=== PATIENT | male | born 1975 | race Two or more races ===

== ENCOUNTER → 2017-05-11 | Outpatient (CLI) | payer OTHER ==
[~2017-05-11] VITALS: Ht 152.4 cm; Wt 140.6 kg
[~2017-05-11] MED LIST: CATAFLAM50 MG PO; COZAAR100 MG PO; HYZAAR 100-121 UDTAB; LASIX20 MG; LASIX20 MG PO; LIPITOR40 MG PO; LOPRESSOR25 MG; LOPRESSOR25 MG PO; LOTREL 10/40 MG1 CAP; LOTREL 10/40 MG1 CAP PO; MEDROLPACK PO; MOTRIN800 MG PO; ORPH100T PO; OSEL75CA PO; VOLTAREM 50 MG PO; ZYRTEC10 MG PO; [UNRECOGNIZED DRUG - OTHER]
== END | disposition home or self-care (01) ==
LOC: PPHC 08:38
DX: J06.9 Acute upper respiratory infection, unspecified (principal)

== ENCOUNTER 2017-06-16 14:39 | Outpatient (CLI) | payer OTHER | END 2017-06-16 14:54 | disposition home or self-care (01) | LOC: LAB 14:39 | DX: J11.1 Influenza due to unidentified influenza virus with other respiratory manifestations (principal) ==

== ENCOUNTER → 2017-07-27 | Outpatient (CLI) | payer OTHER | END | disposition home or self-care (01) | LOC: RAD 11:48 | DX: R91.8 Other nonspecific abnormal finding of lung field (principal) ==

== ENCOUNTER → 2017-07-27 | Outpatient (CLI) | payer OTHER | END | disposition home or self-care (01) | LOC: PPHC 10:57 | DX: Z01.89 Encounter for other specified special examinations (principal) ==

== ENCOUNTER 2017-11-27 11:09 | Outpatient (CLI) | payer OTHER | END 2017-11-27 11:16 | disposition home or self-care (01) | LOC: LAB 11:09 | DX: K52.89 Other specified noninfective gastroenteritis and colitis (principal); R19.7 Diarrhea, unspecified ==

== ENCOUNTER → 2018-02-25 06:52 | Outpatient (CLI) | payer OTHER | END | disposition home or self-care (01) | LOC: LAB 06:52 | DX: I10 Essential (primary) hypertension (principal); Z13.1 Encounter for screening for diabetes mellitus; Z12.11 Encounter for screening for malignant neoplasm of colon; Z12.5 Encounter for screening for malignant neoplasm of prostate ==

== ENCOUNTER 2018-03-19 15:13 | Outpatient (CLI) | payer OTHER | END 2018-03-19 20:10 | disposition home or self-care (01) | LOC: LAB 15:13 | DX: R91.1 Solitary pulmonary nodule (principal); Z51.81 Encounter for therapeutic drug level monitoring ==

== ENCOUNTER 2018-03-22 09:05 | Outpatient (CLI) | payer OTHER | END 2018-03-22 13:19 | disposition home or self-care (01) | LOC: TOM 09:05 | DX: R91.1 Solitary pulmonary nodule (principal); K42.9 Umbilical hernia without obstruction or gangrene; K76.0 Fatty (change of) liver, not elsewhere classified ==

== ENCOUNTER 2018-04-08 11:23 | Outpatient (CLI) | payer OTHER | END 2018-04-08 11:28 | disposition home or self-care (01) | LOC: LAB 11:23 | DX: J11.1 Influenza due to unidentified influenza virus with other respiratory manifestations (principal); J06.9 Acute upper respiratory infection, unspecified ==

== ENCOUNTER 2018-05-11 15:50 | Outpatient (CLI) | payer OTHER | END 2018-05-11 16:10 | disposition home or self-care (01) | LOC: RAD 15:50 | DX: M54.6 Pain in thoracic spine (principal) ==

== ENCOUNTER 2018-06-16 08:46 | Outpatient (CLI) | payer OTHER | END 2018-06-16 09:00 | disposition home or self-care (01) | LOC: LAB 08:46 | DX: N40.0 Benign prostatic hyperplasia without lower urinary tract symptoms (principal) ==

== ENCOUNTER → 2018-07-23 07:34 | Outpatient (CLI) | payer OTHER | END | disposition home or self-care (01) | LOC: RAD 07:34 | DX: M25.531 Pain in right wrist (principal) ==

== ENCOUNTER 2018-08-10 23:38 | Emergency (ER) | payer OTHER ==
[~2018-08-10] VITALS: Ht 177.8 cm; Wt 136.1 kg
[2018-08-10] MEDS ORDERED: GLUCOPHAGE XR500 MG (23:48)
[2018-08-11] MEDS ORDERED: NAPROXEN SODIU550 MG PO (01:34)
== END 2018-08-11 01:50 | disposition home or self-care (01) ==
LOC: ER 23:38
DX: M72.2 Plantar fascial fibromatosis (principal)

== ENCOUNTER → 2018-10-02 07:35 | Outpatient (CLI) | payer OTHER ==
[~2018-10-02 07:35] MED LIST changes: +GLUCOPHAGE XR500 MG; +NAPROXEN SODIU550 MG PO
== END | disposition home or self-care (01) ==
LOC: LAB 07:35
DX: E11.65 Type 2 diabetes mellitus with hyperglycemia (principal); E78.00 Pure hypercholesterolemia, unspecified; E03.8 Other specified hypothyroidism

== ENCOUNTER 2019-01-17 10:52 | Outpatient (CLI) | payer OTHER | END 2019-01-19 10:37 | disposition home or self-care (01) | LOC: RAD 10:52 | DX: M79.674 Pain in right toe(s) (principal) ==

== ENCOUNTER 2019-01-25 14:02 | Emergency (ER) | payer OTHER ==
[~2019-01-25] VITALS: Ht 177.8 cm; Wt 136.1 kg
[2019-01-25] MEDS ORDERED: ZETIA10 MG (14:18)
[2019-01-25] MEDS ORDERED: FORTAMET500 MG (14:18)
[2019-01-25] MEDS ORDERED: GLIPIZIDE5 MG (14:20)
== END 2019-01-25 16:08 | disposition home or self-care (01) ==
LOC: ER 14:02
DX: S00.81XA Abrasion of other part of head, initial encounter (principal); W22.8XXA Striking against or struck by other objects, initial encounter; Y93.89 Activity, other specified; Y92.69 Other specified industrial and construction area as the place of occurrence of the external cause; Y99.8 Other external cause status

== ENCOUNTER 2019-02-15 06:47 | Outpatient (CLI) | payer OTHER ==
[~2019-02-15 06:47] MED LIST changes: +FORTAMET500 MG; +GLIPIZIDE5 MG; +ZETIA10 MG
== END 2019-02-15 06:50 | disposition home or self-care (01) ==
LOC: LAB 06:47
DX: M79.674 Pain in right toe(s) (principal)

== ENCOUNTER 2019-02-22 11:25 | Outpatient (CLI) | payer OTHER | END 2019-02-22 11:31 | disposition home or self-care (01) | LOC: RAD 11:25 | DX: M25.562 Pain in left knee (principal) ==

== ENCOUNTER → 2019-03-02 13:45 | Outpatient (CLI) | payer OTHER | END | disposition home or self-care (01) | LOC: LAB 13:45 | DX: D64.89 Other specified anemias (principal); M06.4 Inflammatory polyarthropathy; E88.89 Other specified metabolic disorders; M13.88 Other specified arthritis, other site; M10.9 Gout, unspecified ==

== ENCOUNTER → 2019-03-02 | Outpatient (CLI) | payer OTHER | END | disposition home or self-care (01) | LOC: RAD 11:04 | DX: M25.572 Pain in left ankle and joints of left foot (principal); M25.571 Pain in right ankle and joints of right foot ==

== ENCOUNTER → 2019-03-21 06:48 | Outpatient (CLI) | payer OTHER | END | disposition home or self-care (01) | LOC: LAB 06:48 | DX: I10 Essential (primary) hypertension (principal); M54.5 Low back pain; E66.3 Overweight ==

== ENCOUNTER 2019-03-24 06:28 | Outpatient (CLI) | payer OTHER | END 2019-03-24 15:00 | disposition home or self-care (01) | LOC: LAB 06:28 | DX: E11.69 Type 2 diabetes mellitus with other specified complication (principal); E78.00 Pure hypercholesterolemia, unspecified ==

== ENCOUNTER 2019-04-06 18:05 | Emergency (ER) | payer OTHER ==
[~2019-04-06] VITALS: Ht 177.8 cm; Wt 13.6 kg
== END 2019-04-06 21:54 | disposition home or self-care (01) ==
LOC: ER 18:05
DX: R10.9 Unspecified abdominal pain (principal); R11.2 Nausea with vomiting, unspecified

== ENCOUNTER 2019-04-26 11:29 | Outpatient (CLI) | payer OTHER | END 2019-04-26 11:42 | disposition home or self-care (01) | LOC: LAB 11:29 | DX: M00.89 Polyarthritis due to other bacteria (principal) ==

== ENCOUNTER 2019-04-28 13:25 | Outpatient (CLI) | payer OTHER | END 2019-04-28 15:00 | disposition home or self-care (01) | LOC: LAB 13:25 | DX: L40.59 Other psoriatic arthropathy (principal); I10 Essential (primary) hypertension; M45.9 Ankylosing spondylitis of unspecified sites in spine; M10.9 Gout, unspecified ==

== ENCOUNTER 2019-04-29 13:35 | Outpatient (CLI) | payer OTHER | END 2019-04-29 13:38 | disposition home or self-care (01) | LOC: SONOGRAMA 13:35 | DX: M10.9 Gout, unspecified (principal) ==

== ENCOUNTER 2019-06-20 07:31 | Outpatient (CLI) | payer OTHER | END 2019-06-20 07:39 | disposition home or self-care (01) | LOC: LAB 07:31 | DX: E11.65 Type 2 diabetes mellitus with hyperglycemia (principal); E78.00 Pure hypercholesterolemia, unspecified; M10.49 Other secondary gout, multiple sites; I10 Essential (primary) hypertension; M54.5 Low back pain; E66.3 Overweight; Z12.11 Encounter for screening for malignant neoplasm of colon; N41.0 Acute prostatitis ==